=== PATIENT | female | born 1995 | race African-American/Black ===

== ENCOUNTER 2019-04-21 22:40 | Emergency (ER) | payer BC ==
[2019-04-21] MEDS ORDERED: SPRINTEC 35 MCG1 TAB PO (22:50)
[2019-04-21 23:31] LABS: HEMATOCRIT 31.4 % (37.0-47.0); HEMOGLOBIN 10.5 g/dL (12.5-16.0); MEAN CELL VOLUME 80 fl (78-100); MEAN CORPUSCULAR HEMOGLOBIN 27 pg (27-31); MEAN CORPUSCULAR HGB CONC 33 g/dL (33-37); MEAN PLATELET VOLUME 8.9 fl (7.4-10.4); PLATELET COUNT 430 K/mm3 (130-400); RED BLOOD COUNT 3.94 M/mm3 (4.10-5.30); RED CELL DISTRIBUTION WIDTH 12.9 % (11.5-14.5); WHITE BLOOD COUNT 12.6 K/mm3 (4.8-10.8)
[2019-04-21 23:33] LABS: ALBUMIN 3.7 g/dL (3.5-5.0)
[2019-04-21 23:34] LABS: POTASSIUM 3.4 mmol/L (3.5-5.1)
[2019-04-21 23:35] LABS: CALCIUM 9.2 mg/dL (8.3-10.5)
[2019-04-21 23:36] LABS: TOTAL PROTEIN 7.8 g/dL (6.4-8.3)
[2019-04-22 00:01] LABS: LYMPHOCYTE 13 % (20-51); MONOCYTE 2 % (3-10); NEUTROPHILS 83 % (42-75)
[2019-04-22 00:03] LABS: LIPASE 9 U/L (8-78)
[2019-04-22 00:18] LABS: D-DIMER 1.07 mg/L FEU (0.15-0.50)
[2019-04-22 03:10] VITALS: BP 129/83
== END 2019-04-22 03:10 | disposition short-term general hospital (02) ==
LOC: ED 22:40
PROVIDERS: Nurse Practitioner Family
DX: K52.9 Noninfective gastroenteritis and colitis, unspecified (principal); R06.02 Shortness of breath; J45.909 Unspecified asthma, uncomplicated
CPT/HCPCS: J1885; J7030; Q9967

== ENCOUNTER → 2019-05-10 | Outpatient (CLI) | payer BC ==
[2019-04-22 03:10] VITALS: BP 129/83
[~2019-05-10] MED LIST: SPRINTEC 35 MCG1 TAB PO
[2019-05-10 17:36] LABS: HEMATOCRIT 34.1 % (37.0-47.0); HEMOGLOBIN 11.1 g/dL (12.5-16.0); MEAN CELL VOLUME 80 fl (78-100); MEAN CORPUSCULAR HEMOGLOBIN 26 pg (27-31); MEAN CORPUSCULAR HGB CONC 33 g/dL (33-37); MEAN PLATELET VOLUME 9.2 fl (7.4-10.4); RED BLOOD COUNT 4.24 M/mm3 (4.10-5.30); RED CELL DISTRIBUTION WIDTH 14.6 % (11.5-14.5); WHITE BLOOD COUNT 9.3 K/mm3 (4.8-10.8)
[2019-05-10 17:42] LABS: ALBUMIN 4.1 g/dL (3.5-5.0); POTASSIUM 3.5 mmol/L (3.5-5.1)
[2019-05-10 17:43] LABS: CALCIUM 9.3 mg/dL (8.3-10.5)
[2019-05-10 17:45] LABS: TOTAL PROTEIN 7.5 g/dL (6.4-8.3)
[2019-05-10 17:46] LABS: TOTAL BILIRUBIN 0.7 mg/dL (0.2-1.2)
[2019-05-11 00:27] LABS: PLATELET COUNT 789 K/mm3 (130-400)
[2019-05-11 00:28] LABS: ERYTHROCYTE SEDIMENTATION RATE 24 mm/hr (0-20)
[2019-05-11 00:29] LABS: LYMPHOCYTE 35 % (20-51); MONOCYTE 4 % (3-10); NEUTROPHILS 59 % (42-75)
[2019-05-11 18:51] LABS: T3 TOTAL 149 ng/dL (87-178)
== END ==
LOC: LAB 17:05
PROVIDERS: Family Medicine
DX: Z00.00 Encounter for general adult medical examination without abnormal findings (principal); R53.83 Other fatigue; R79.82 Elevated C-reactive protein (CRP)

== ENCOUNTER → 2019-07-16 | Outpatient (CLI) | payer BC ==
[~2019-07-16] VITALS: Ht 147.3 cm; Wt 47.7 kg
[~2019-07-16] MED LIST changes: +IRON90 MG; +KAPSPARGO SPRIN25 MG; +NORTREL 35 MCG-1 TA1 PO; +PROTONIX20 M1 PO
[2019-07-16 10:02] VITALS: BP 109/66
== END ==
LOC: AMSURD 09:55
DX: R00.0 Tachycardia, unspecified (principal); R00.2 Palpitations